=== PATIENT | female | born 1960 | race Caucasian/White ===

== ENCOUNTER 2020-10-04 05:49 | Observation (INO) ==
[2020-10-04] MEDS ORDERED: Ipratropium/Albuterol Neb 3 ML IH ONE ×2 (05:54→09:10)
[2020-10-04] MEDS ORDERED: methylPREDNISolone 125 MG/2 ML VIAL IVP ONE (05:54)
[2020-10-04 06:41] LABS: Basophils % 0.4 %; Eosinophils # 0.5 K/mcL (0.0-0.6); Eosinophils % 5.8 %; Hematocrit 37.9 % (35.3-44.9); Hemoglobin 11.6 g/dL (11.5-15.4); Immature Granulocytes % 0.4 % (0-4); Lymphocytes # 1.5 K/mcL (0.6-4.6); Lymphocytes % 16.4 %; Mean Corpuscular HGB Conc 30.6 g/dL (31.6-35.5); Mean Corpuscular Hemoglobin 25.8 pg (28.0-33.3); Mean Corpuscular Volume 84.4 fL (83.0-100.0); Mean Platelet Volume 10.4 fL (9.4-12.4); Monocytes % 10.6 %; Neutrophils # 6.1 K/mcL (1.6-8.9); Platelet Count 257 K/mcL (140-400); Red Blood Count 4.49 M/mcL (3.82-4.97); Red Cell Distribution Width 16.4 % (11.5-14.5); Segmented Neutrophils % 66.4 %; White Blood Count 9.2 K/mcL (4.3-11.1)
[2020-10-04 06:48] LABS: INR 1.1; Prothrombin Time 13.2 Seconds (9.4-12.1)
[2020-10-04] MEDS ORDERED: 0.9 % Sodium Chloride 500 ML IVC ONE ×2 (06:54→08:46)
[2020-10-04 07:01] LABS: BUN/Creatinine Ratio 14 (6-26); Blood Urea Nitrogen 11 mg/dL (8-23); Calcium 8.8 mg/dL (8.6-10.3); Carbon Dioxide 25 mEq/L (23-29); Chloride 102 mEq/L (98-107); Glucose 180 mg/dL (70-105); Osmolality,Calculated 284 (280-300); Potassium 3.8 mEq/L (3.5-5.1); Sodium 135 mEq/L (136-145); Troponin I < 0.03 ng/mL (< 0.04); eGFR For African Americans > 60 (> 60); eGFR For Non-African Americans > 60 (> 60)
[2020-10-04 07:06] LABS: ABG Base Excess -1 mEq/L (-2 to 3); ABG HCO3 26 mEq/L (21-27); ABG Oxygen Saturation 100 % (95-98); ABG PCO2 52 mmHg (35-45); ABG PH 7.31 pH Units (7.32-7.45); ABG PO2 300 mmHg (85-104); ABG TCO2 28 mEq/L (20-26); Blood Gas Modality BiLevel; Blood Gas Pressure Support 6 cm H2O; Blood Gas VT 489 cc
[2020-10-04 07:27] LABS: Adenovirus Not Detected (Not Detect); Bordetella Pertussis Not Detected (Not Detect); Chlamydophila pneumoniae Not Detected (Not Detect); Coronavirus 229E Not Detected (Not Detect); Coronavirus HKU1 Not Detected (Not Detect); Coronavirus NL63 Not Detected (Not Detect); Coronavirus OC43 Not Detected (Not Detect); Human Metapneumovirus Not Detected (Not Detect); Human Rhinovirus/Enterovirus Not Detected (Not Detect); Influenza A Subtype 2009 H1 Not Detected (Not Detect); Influenza B Not Detected (Not Detect); Mycoplasma pneumoniae Not Detected (Not Detect); Parainfluenza Virus 1 Not Detected (Not Detect); Parainfluenza Virus 2 Not Detected (Not Detect); Parainfluenza Virus 3 Not Detected (Not Detect); Parainfluenza Virus 4 Not Detected (Not Detect); Respiratory Syncytial Virus Not Detected (Not Detect); SARS-CoV-2 Not Detected (Not Detect)
[2020-10-04 08:56] LABS: VBG HCO3 23 mEq/L (21-27); VBG PCO2 39 mmHg (41-51); VBG PH 7.38 pH Units (7.32-7.42); VBG PO2 216 mmHg (25-50)
[2020-10-04] MEDS ORDERED: Isovue-370 500 ML BOTTLE IVP ONE (09:10)
[2020-10-04] MEDS ORDERED: Naloxone 0.4 MG/ML INJ IVP PRN (10:50)
[2020-10-04] MEDS ORDERED: Melatonin 3 MG TABLET PO PRN (10:50)
[2020-10-04] MEDS: Ipratropium/Albuterol Neb 3 ML IH SCH ×4 (11:06→23:16)
[2020-10-04] MEDS: carvediloL 25 MG TABLET PO SCH ×2 (15:14→21:06)
[2020-10-04] MEDS ORDERED: Fluticasone Propionate Nasal 50 MCG/SPRAY BOTTLE NS PRN (15:58)
[2020-10-04] MEDS ORDERED: Albuterol 2.5 MG/3 ML NEBULIZER IH PRN (15:58)
[2020-10-04] MEDS ORDERED: *HR* OxyCODONE Immed Rel 5 MG TABLET PO PRN (15:58)
[2020-10-04] MEDS ORDERED: *HR* LORazepam 1 MG TABLET PO PRN (15:58)
[2020-10-04] MEDS ORDERED: Sulfamethoxazole/Trimeth DS 1 EACH TABLET PO SCH (16:00)
[2020-10-04] MEDS ORDERED: *HR* OxyCODONE ER (12 HR) 20 MG TABLET PO SCH (16:00)
[2020-10-04] MEDS: Sennosides 8.6 MG TABLET PO SCH (21:07)
[2020-10-04 23:29] VITALS: TEMP 98
[2020-10-05] MEDS: Ipratropium/Albuterol Neb 3 ML IH SCH ×2 (03:57→07:41)
[2020-10-05 04:44] VITALS: BP 90/54
[2020-10-05 04:52] VITALS: PULSE 63; O2SAT 95
[2020-10-05 04:52] LABS: Basophils % 0.3 %; Eosinophils # 0.1 K/mcL (0.0-0.6); Eosinophils % 1.4 %; Hematocrit 31.5 % (35.3-44.9); Hemoglobin 10.2 g/dL (11.5-15.4); Immature Granulocytes % 0.2 % (0-4); Lymphocytes # 1.6 K/mcL (0.6-4.6); Lymphocytes % 15.8 %; Mean Corpuscular HGB Conc 32.4 g/dL (31.6-35.5); Mean Corpuscular Hemoglobin 26.8 pg (28.0-33.3); Mean Corpuscular Volume 82.7 fL (83.0-100.0); Mean Platelet Volume 10.8 fL (9.4-12.4); Monocytes # 1.1 K/mcL (0.0-1.3); Monocytes % 11.1 %; Platelet Count 221 K/mcL (140-400); Red Blood Count 3.81 M/mcL (3.82-4.97); Red Cell Distribution Width 16.6 % (11.5-14.5); Segmented Neutrophils % 71.2 %; White Blood Count 9.9 K/mcL (4.3-11.1)
[2020-10-05] MEDS ORDERED: 4 PO SCH (05:00)
[2020-10-05 05:04] LABS: BUN/Creatinine Ratio 24 (6-26); Blood Urea Nitrogen 15 mg/dL (8-23); Calcium 8.4 mg/dL (8.6-10.3); Carbon Dioxide 24 mEq/L (23-29); Chloride 103 mEq/L (98-107); Glucose 125 mg/dL (70-105); Osmolality,Calculated 278 (280-300); Potassium 4.1 mEq/L (3.5-5.1); Sodium 133 mEq/L (136-145); eGFR For African Americans > 60 (> 60); eGFR For Non-African Americans > 60 (> 60)
[2020-10-05] MEDS: Sennosides 8.6 MG TABLET PO SCH (08:10)
[2020-10-05] MEDS: carvediloL 25 MG TABLET PO SCH (08:11)
[2020-10-05] MEDS ORDERED: Spironolactone 25 MG TABLET PO SCH (09:00)
[2020-10-05] MEDS ORDERED: Furosemide 20 MG TABLET PO SCH (09:00)
[2020-10-05] MEDS ORDERED: Cholecalciferol (D-3) 1,000 UNIT (25MCG) TABLET PO SCH (09:00)
[2020-10-05] MEDS ORDERED: predniSONE 20 MG TABLET PO SCH (09:00)
== END 2020-10-05 10:47 | disposition home or self-care (01) ==
LOC: 2NENU 05:49 → EMEROOARM 05:49 → 2NENU 11:01
PROVIDERS: ADMIT Internal Medicine; ATTEND Internal Medicine